=== PATIENT | female | born 1995 | race Two or more races ===

== ENCOUNTER 2020-11-21 14:23 | Emergency (ER) | payer OTHER ==
[~2020-11-21] VITALS: Ht 167.6 cm; Wt 53.5 kg
[2020-11-21] MEDS ORDERED: TRAZODONE HCL50 MG (14:38)
[2020-11-21] MEDS ORDERED: BUPROPION HCL200 M1 (14:38)
== END 2020-11-21 20:07 | disposition home or self-care (01) ==
LOC: ER 14:23
DX: N30.80 Other cystitis without hematuria (principal)

== ENCOUNTER 2021-09-06 19:21 | Emergency (ER) | payer OTHER ==
[~2021-09-06] VITALS: Ht 167.6 cm; Wt 56.7 kg
[~2021-09-06 19:21] MED LIST: BUPROPION HCL200 M1; TRAZODONE HCL50 MG
[2021-09-06] MEDS ORDERED: PEPCID AC20 MG (19:51)
== END 2021-09-06 22:21 | disposition home or self-care (01) ==
LOC: ER 19:21
DX: L73.2 Hidradenitis suppurativa (principal)

== ENCOUNTER 2024-06-14 15:42 | Emergency (ER) | payer OTHER ==
[~2024-06-14] VITALS: Ht 165.1 cm; Wt 54.4 kg
[~2024-06-14 15:42] MED LIST changes: +PEPCID AC20 MG
[2024-06-14 16:18] VITALS: BP 112/80; O2SAT 99
[2024-06-14] MEDS ORDERED: HYOSCYAMINE SULFATE 0.125 MG TAB.SUBL SL ONE (19:15)
[2024-06-14] MEDS ORDERED: HYOSCYAMINE SULFATE 0.125 MG TAB.SUBL ONE (19:18)
[2024-06-14 19:33] LABS: HEMATOCRIT 42.5 % (36.0-45.00); HEMOGLOBIN 14.2 g/dL (12.0-15.00); MEAN CELL VOLUME 83.9 fL (80.00-100.00); MEAN CORPUSCULAR HEMOGLOBIN 28.1 pg (27.00-32.0); MEAN CORPUSCULAR HGB CONC 33.5 g/dl (32.0-36.0); PLATELET COUNT 193 K/uL (150-450); RED BLOOD COUNT 5.07 M/uL (4.00-6.00); RED CELL DISTRIBUTION WIDTH 14.2 % (11.5-14.5)
[2024-06-14 19:49] LABS: PH,URINE 5.5 (5.0-8.0); URINE APPEARANCE Cloudy; URINE BILIRRUBIN Negative (NEGATIVE); URINE BLOOD Negative; URINE COLOR Dark Yellow; URINE GLUCOSE Negative (NEGATIVE); URINE KETONE Trace (NEGATIVE); URINE LEUKOCYTE Small; URINE NITRATE Negative; URINE PROTEIN Trace (NEGATIVE)
[2024-06-14 19:53] LABS: URINE BACTERIA 3730.6 uL (0.0-1933); URINE EPITHELIAL CELLS 59.8 uL (0.0-38.8); URINE RBC 23.1 uL (0.0-20.8); URINE WBC 75.9 uL (0.0-23.2)
[2024-06-14 20:07] LABS: BILIRUBIN TOTAL 0.48 mg/dL (0.3-1.2); CALCIUM 9.1 mg/dL (8.5-10.1); CREATININE SERUM 0.72 mg/dL (0.55-1.02); GFR 97.17; GLOBULINA 4.2 G/DL (2.4-3.5); POTASSIUM 3.56 mEq/L (3.5-5.1); TOTAL PROTEIN 8.2 gm/dL (6.4-8.2)
[2024-06-14 20:29] LABS: URINE CAST 1.03 uL (0.0-1.40)
[2024-06-14 20:30] LABS: URINE CRYSTALS MANY /HPF
== END 2024-06-15 02:08 | disposition home or self-care (01) ==
LOC: ER 15:45
PROVIDERS: Emergency Medicine
DX: K58.9 Irritable bowel syndrome, unspecified (principal); R19.7 Diarrhea, unspecified